=== PATIENT | female | born 1950 | race Caucasian/White ===

== ENCOUNTER 2021-07-27 17:05 | Emergency (ER) | payer MEDICARE ==
[2021-07-27 18:25] LABS: HEMOGLOBIN 12.3 gm/dl (12.3-15.3); RED BLOOD COUNT 4.21 M/UL (4.00-5.10); WHITE BLOOD COUNT 4.3 K/UL (4.5-11.0)
[2021-07-27 18:45] LABS: BUN/CREATININE RATIO 18 (0-10)
== END 2021-07-28 11:26 | disposition home or self-care (01) ==
LOC: ER1 17:05
PROVIDERS: Physician Assistant Medical
DX: U07.1 COVID-19 (principal); I10 Essential (primary) hypertension; E11.9 Type 2 diabetes mellitus without complications; Z90.89 Acquired absence of other organs; Z90.710 Acquired absence of both cervix and uterus; Z88.2 Allergy status to sulfonamides; Z88.1 Allergy status to other antibiotic agents; Z91.041 Radiographic dye allergy status
CPT/HCPCS: 71045; 71250; 78580; 80053; 82550; 82553; 83690; 83735; 83874; 83880; 84439; 84443; 84484; 85025; 85379; 93005; 99284; A9540